=== PATIENT | male | born 1960 | race Caucasian/White ===

== ENCOUNTER 2016-12-05 08:35 | Emergency (ER) | payer BC ==
[2016-12-05 08:48] VITALS: BP 127/82
--- NOTE | 2016-12-05 09:10 | UC ---
Truncal Trauma HPI - HPI Summary HPI Summary: The patient comes in today for: 1. Right chest pain/injury: Onset: 12 hours ago. Palliative/provocative: Ibuprofen and Tylenol and Vicodin helped. Breathing makes it worse. Support externally makes it feel better. Quality: Sharp. With coughing make it more of a stabbing pain. Region: Right anterior, inferior of the rib cage. Severity: 4/10. Time: Constant. Associated symptoms: Event: He fell on his right side with his right hand as a fist and felt a "crack." He had a lot of pain right when it happened. Previous treatment: At 8 AM he took Tylenol and three OTC ibuprofen. He drove here. Hemoptysis: None. Previous injury: He thinks that he cracked a pain in the upper right anterior chest. * - History Of Current Complaint Chief Complaint: UCTrauma Stated Complaint: RIB DAWN Time Seen by Provider: 12/05/16 09:04 Hx Obtained From: Patient - Allergies/Home Medications Allergies/Adverse Reactions: Allergies Allergy/AdvReac Type Severity Reaction Status Date / Time Lactose Allergy Congestion Verified 06/15/15 07:02 Home Medications: Home Medications Acetaminophen [Extra Strength Acetaminop] 1 tab PO PRN 12/05/16 [History] Vicodin 1 tab PO ONCE PRN 12/05/16 [History Confirmed 12/05/16] PMH/Surg Hx/FS Hx/Imm Hx Previously Healthy: No Endocrine History Of: Denies: Diabetes, Thyroid Disease, Hyperthyroidism, Hypothyroidism, Dyslipidemia Cardiovascular History Of: Denies: Cardiac Disorders, Hypertension, Pacemaker/ICD, Myocardial Infarction , Congestive Heart Failure, Atrial Fibrillation, Deep Vein Thrombosis, Bleeding Disorders Respiratory History Of: Reports: Asthma - ALLERGY AND COLD RELATED Denies: COPD, Bronchitis, Pneumonia, Pulmonary Embolism GI/ History Of: Reports: Gastroesophageal Reflux Denies: Ulcer, Gastrointestinal Bleed, Gall Bladder Disease, Kidney Stones, Diverticulitis, Renal Disease, Urosepsis Neurological History Of: Denies: TIA, CVA, Dementia, Seizures, Migraine Psychological History Of: Denies: Anxiety, Depression, Bipolar Disorder, Schizophrenia, Post Traumatic Stress Disorder Cancer History Of: Reports: Cervical Cancer Denies: Lung Cancer, Colorectal Cancer, Breast Cancer, Prostate Cancer Other History Of: Negative For: HIV, Hepatitis B, Hepatitis C, Anticoagulant Therapy - Surgical History Surgical History: Yes Surgery Procedure, Year, and Place: 2002 appendectomy 2003 hernia repair tonsils; ear tubes; wisdom teeth. SEVERAL MYRINGOTOMYS A CHILD. [place] left hand repair. Vasectomy - Family History Known Family History: Negative: Cardiac Disease, Hypertension - Social History Occupation: Employed Full-time Alcohol Use: None Alcohol Amount: 6 pack per week Substance Use Type: None Smoking Status (MU): Never Smoked Tobacco - Immunization History Most Recent Tetanus Shot: 2002 Review of Systems Constitutional: Negative Skin: Negative Eyes: Negative ENT: Negative Respiratory: Negative Cardiovascular: Chest Pain Gastrointestinal: Negative Genitourinary: Negative All Other Systems Reviewed And Are Negative: Yes Physical Exam Triage Information Reviewed: Yes Appearance: Well-Appearing, No Pain Distress, Well-Nourished Vital Signs: Initial Vital Signs Temp 98.2 F 12/05/16 08:39 Pulse 64 12/05/16 08:39 Resp 16 12/05/16 08:39 BP 127/82 12/05/16 08:39 Pulse Ox 97 12/05/16 08:39 Vital Signs Reviewed: Yes Eyes: Positive: Conjunctiva Clear. Negative: Discharge ENT: Positive: Hearing grossly normal. Negative: Pharyngeal erythema, Nasal congestion, Nasal drainage, TM bulging, TM dull, TM red, Tonsillar swelling, Tonsillar exudate Dental: Negative: Gross Decay/Caries @, Dental Fracture @ Neck: Positive: Supple, Nontender, No Lymphadenopathy. Negative: Nuchal Rigidity Respiratory: Positive: Chest non-tender, Lungs clear, No respiratory distress, No accessory muscle use. Negative: Crackles, Wheezing Cardiovascular: Positive: RRR, No Murmur Abdomen Description: Positive: Nontender, No Organomegaly, Soft. Negative: Distended, Guarding Musculoskeletal: Positive: Strength Intact, ROM Intact, Other: - Patient has pain to palpation of the right anterior chest just below the right nipple. There is no ecchymosis, swelling or subcutaneous emphysema. However, there is no rub. Posterior rib pressure elicits pain over this area. Neurological: Positive: Alert, Muscle Tone Normal Psychological: Positive: Age Appropriate Behavior, Consolable Skin: Negative: rashes, breakdown Diagnostics - Radiology No standard instances Xray Interpretation: No Acute Changes - No rib fractures seen. Radiology Interpretation Completed By: Radiologist [place] Trauma Course/Dx - Differential Dx/Diagnosis Provider Diagnoses: Right rib injury. Discharge - Discharge Plan Condition: Stable Disposition: HOME Patient Education Materials: Contusion in Adults (ED) Referrals: Gaurav Hanna MD [Primary Care Provider] - 1 Week (Please see your primary care provider in a week to see how well you are doing. If you get worse, please be seen sooner in the ER or through us.) Additional Instructions: You may use ibuprofen 200 mg/pill, 1-4 pills four times a day as needed for pain. The hydrocodone/acetaminophen medication is more for night when you need to sleep.
--- NOTE | 2016-12-05 09:43 | RAD ---
INDICATION: Right rib pain COMPARISON: None TECHNIQUE: Multiple views of the ribs were obtained. FINDINGS: Bones: There is no evidence of acute rib fracture. LUNGS: The lungs are clear. There is no pneumothorax. Pleural spaces: There is no evidence of hemothorax. Other: None IMPRESSION: NO ACUTE RIGHT RIB FRACTURE.
== END 2016-12-05 10:00 | disposition home or self-care (01) ==
LOC: UCEAST 08:35
DX: S29.9XXA Unspecified injury of thorax, initial encounter (principal); W19.XXXA Unspecified fall, initial encounter; Y93.9 Activity, unspecified; Y92.9 Unspecified place or not applicable
CPT/HCPCS: 99213; G0463